=== PATIENT | female | born 1995 | race African-American/Black ===

== ENCOUNTER 2018-07-14 10:10 | Emergency (ER) | payer OTHER ==
[~2018-07-14] VITALS: Ht 167.6 cm; Wt 131.5 kg
[2018-07-14 10:10] VITALS: BP_SYST 152
--- NOTE | 2018-07-14 10:10 | NUR ---
BROUGHT BACK TO BED #8 AND TRIAGED. REPORT GIVEN TO INNA
--- NOTE | 2018-07-14 10:23 | NUR ---
Patient is awake, alert, and oriented x4. Patient reports sore throat since Wednesday and feels like she has a cold with increasing pain in her throat. Patient reports throat pain 2/10 right now. Patient denies previous medical history.
--- NOTE | 2018-07-14 10:32 | NUR ---
YOUNG Sandoval at bedside examining patient.
[2018-07-14] MEDS ORDERED: NAPROXEN 250 MG TABLET PO ONE ×2 (11:00→21:00)
[2018-07-14 11:09] VITALS: BP_SYST 152
--- NOTE | 2018-07-14 11:09 | NUR ---
Patient given written and verbal discharge instructions and verbalizes understanding. ER MD discussed with patient the results and treatment provided. Patient in stable condition. ID arm band removed. Rx of Naproxen given. Patient educated on pain management and to follow up with PMD. Pain Scale 2/10, Dr. Sandoval is aware. Opportunity for questions provided and answered. Medication side effect fact sheet provided.
[2018-07-14] MEDS ORDERED: NAPROXEN 250 MG TABLET PO SCH (21:00)
== END 2018-07-14 11:09 | disposition home or self-care (01) ==
LOC: SED 10:10
DX: B34.9 Viral infection, unspecified (principal); J02.9 Acute pharyngitis, unspecified
CPT/HCPCS: 99283